=== PATIENT | male | born 1975 | race Caucasian/White ===

== ENCOUNTER 2018-03-26 00:07 | Observation (INO) ==
[2018-03-26] MEDS ORDERED: Ondansetron 4 MG/2 ML VIAL IVP PRN (06:43)
[2018-03-26] MEDS ORDERED: Naloxone 0.4 MG/ML INJ IVP PRN ×2 (06:43)
[2018-03-26] MEDS ORDERED: OXYCODONE Oral CONC 10 MG/0.5 ML ORAL.SYG SL PRN (06:43)
[2018-03-26] MEDS ORDERED: 0.9 % Sodium Chloride 1,000 ML IVC SCH (06:45)
[2018-03-26] MEDS ORDERED: Nitroglycerin 0.4 MG TAB.SUBL SL PRN (06:48)
[2018-03-26] MEDS ORDERED: Dextrose Gel 15 GM/37.5 ML TUBE PO PRN ×2 (06:54)
[2018-03-26] MEDS ORDERED: *HR* Dextrose 50 % in Water (Syg) 50 ML SYRINGE IVP PRN (06:54)
[2018-03-26] MEDS ORDERED: D5% in Water 1,000 ML IVC PRN (06:54)
--- NOTE | 2018-03-26 06:56 | Internal Med History&Physical ---
Date of Encounter: 03/26/18 Time of Encounter: 06:00 Internal Medicine - H&P: HPI Chief complaint: Right flank pain Admitted From: Home Plans for Post Hospital Care: Home History of present illness: Mr. Morales is a 42 year old male transferred from [facility] ER. Patient presented to ER for right flank pain. Past medical history is significant for CAD S/P 5 stents, hypertension, diabetes, AYLIN. Patient said he starts to have right-sided flank pain since yesterday morning around 4 AM. The pain is a sharp, radiated to right lower quadrant abdominal. Patient also has nausea and vomited 7 times. The vomiting were fluid, no blood in it. Patient has no fever. Patient denies chest pain or shortness of breath. Patient denies the abdominal pain related to any eating. Patient had one loose bowel movement yesterday morning. Patient described the urine is dark. He denies dysuria or burning but said the has increased frequency. In the [place] emergency room, lab shows WBC 16.7, hemoglobin 16.6, platelets is 300, troponin and CK MP within normal limits. CMP shows sodium 135, potassium 4.2, chloride 100, bicarbonate 27, BUN 6, creatinine 1.17, glucose 217. AST ALT bilirubin within normal limits. Lipase 91. CT abdomen shows cholelithiasis without signs of cholecystitis. No kidney stone or ureteral stones identified. Patient was given IV fluid, IV pain medication, and 1 dose of Zosyn. Patient was transferred to our hospital for further management. Past Med Surg Social Fam HX - Past Medical History Medical history: CHF, diabetes, hypertension, myocardial infarction Psychiatric history: no psych history - Social History Smoking Status: Current every day smoker Packs per day: 1 Smokeless Tobacco Status: No Alcohol use: none Drug use: none - Family History Mother Living Status: Still Living Hx Family Cardiac Disorders: Yes Hx Family Respiratory Disorders: Yes Father Living Status: Still Living Hx Family Cardiac Disorders: Yes Hx Family Respiratory Disorders: Yes Internal Medicine - H&P: Meds Albuterol Sulfate [Proair Respiclick] 90 mcg IH PRN 03/26/18 [History] Aspirin 81 mg PO DAILY 03/26/18 [History] Atorvastatin [Lipitor] 10 mg PO DAILY 03/26/18 [History] Carvedilol [Coreg] 12.5 mg PO DAILY 03/26/18 [History] Clopidogrel [Plavix] 75 mg PO DAILY 03/26/18 [History] HydrOXYzine Pamoate [Vistaril] 75 mg PO HS 03/26/18 [History] Insulin Glargine,Hum.rec.anlog [Lantus Solostar] 100 units SQ HS 03/26/18 [ History] Insulin LISPRO [Humalog] 100 unit SQ TID 03/26/18 [History] Ipratropium/Albuterol Neb [Duoneb] 3 ml IH PRN 03/26/18 [History] Liraglutide [Victoza 2-Christian] 18 mg SQ DAILY 03/26/18 [History] Melatonin [Melatin] 3 mg PO HS 03/26/18 [History] Nitroglycerin [Nitrostat] 0.4 mg SL Q5MIN PRN 03/26/18 [History] metFORMIN [Glucophage] 1,000 mg PO BIDWM 03/26/18 [History] traZODone [TraZODone] 50 mg PO HS 03/26/18 [History] 3 Allergy/AdvReac Type Severity Reaction Status Date / Time acetaminophen [From Vicodin] Allergy Rash Verified 03/26/18 06:21 hydrocodone [From Vicodin] Allergy Rash Verified 03/26/18 06:21 All Systems PM: A 10-system review of systems was performed and is negative for pertinent findings except as documented above in the HPI. - Constitutional Vitals: Temp Pulse Resp BP Pulse Ox 97.8 F 91 16 131/88 95 03/26/18 05:33 03/26/18 05:33 03/26/18 05:33 03/26/18 05:33 03/26/18 05:33 General appearance: Present: mild distress, A&O X 3, answers questions appropriately - Head Head exam: Present: atraumatic, normocephalic - Eye Eye exam: Present: PERRL, conjuntiva pink, sclera anicteric Pupils: Present: PERRL - Neck Neck exam general surgery: Present: supple, trachea midline. Absent: lymphadenopathy - Respiratory Respiratory exam: Present: CTAB. Absent: accessory muscle use, rales, rhonchi, wheezes - Cardiovascular Cardiovascular exam: Present: RRR, +S1, +S2. Absent: diastolic murmur, gallop, rubs, systolic murmur - GI/Abdominal GI/Abdominal exam: Present: normal bowel sounds, soft, tenderness (On right flank and RLQ, no rebound or guarding. CVAT positive on right side), no peritoneal signs. Absent: distended Additional comments: Morphy's sign negative - Extremities Exam Extremities exam: Present: warm, radial pulses palpable and symmetrical. Absent : calf tenderness, cyanotic, pedal edema - Neurological Exam Neurological exam: Present: CN II-XII intact, oriented X3, no focal deficits. Absent: pronater drift, facial droop, speech deficit - Skin Skin exam: Present: dry, intact - Assessment and plan (1) Abdominal pain Current Visit: Yes Status: Acute Assessment and plan: Patient presented with right flank pain. With elevated white count and nausea vomiting. CT abdomen shows cholelithiasis, otherwise unremarkable. - Patient has flank pain, however, no kidney stone or ureteral stone identified. Suspected pyelonephritis, will check UA. - Billiary colic is another differential diagnosis as patient shows gallstone. Surgery is consulted. - We will continue nothing by mouth, pain management. - Continue Zosyn at this point. Follow-up urine and blood culture Qualifiers: Abdominal location: right upper quadrant Qualified Code(s): R10.11 - Right upper quadrant pain (2) CAD (coronary artery disease) Current Visit: Yes Status: Acute Assessment and plan: Continue home medications aspirin, Plavix, beta guille, and statin. Patient denies chest pain at this point. Qualifiers: Coronary Disease-Associated Artery/Lesion type: [place] artery [place] vs. transplanted heart: [place] heart Associated angina: without angina Qualified Code(s): I25.10 - Atherosclerotic heart disease of [place] coronary artery without angina pectoris (3) Hypertension Current Visit: Yes Status: Acute Assessment and plan: Continue home medications Qualifiers: Hypertension type: essential hypertension Qualified Code(s): I10 - Essential (primary) hypertension (4) Diabetes Current Visit: Yes Status: Acute Assessment and plan: Continue basal and sliding-scale insulin coverage. Closely monitor glucose level Qualifiers: Diabetes mellitus type: type 2 Diabetes mellitus long term care pharmacist insulin use: with long term care pharmacist use Diabetes mellitus complication status: without complication Qualified Code(s): E11.9 - Type 2 diabetes mellitus without complications; Z79.4 - superintendent [employer] (current) use of insulin (5) AYLIN (obstructive sleep apnea) Current Visit: Yes Status: Acute Assessment and plan: Patient said he was prescribed but does not use the CPAP. Place patient on nasal cannula oxygen and continuous oximetry monitoring now. Closely monitor patient. (6) DVT prophylaxis Current Visit: Yes Status: Acute Assessment and plan: Heparin subcutaneously - Time Spent With Patient Total time spent is greater than 50% in coordination of care (as documented) at patient's floor/unit and/or counseling patient: 40 minutes Greater than 35 minutes
[2018-03-26 07:41] LABS: Basophils # 0.1 K/mcL (0.0-0.2); Basophils % 0.5 %; Eosinophils # 0.3 K/mcL (0.0-0.6); Hematocrit 46.2 % (37.5-50.1); Hemoglobin 15.8 g/dL (12.9-16.9); Immature Granulocytes % 0.5 % (0-4); Lymphocytes # 4.1 K/mcL (0.6-4.6); Lymphocytes % 27.6 %; Mean Corpuscular HGB Conc 34.2 g/dL (31.6-35.5); Mean Corpuscular Volume 84.8 fL (83.0-100.0); Mean Platelet Volume 11.2 fL (9.4-12.4); Monocytes # 1.1 K/mcL (0.0-1.3); Monocytes % 7.5 %; Neutrophils # 9.2 K/mcL (1.6-8.9); Platelet Count 288 K/mcL (140-400); Red Blood Count 5.45 M/mcL (4.19-5.50); Red Cell Distribution Width 13.7 % (11.5-14.5); Segmented Neutrophils % 61.9 %
[2018-03-26 07:47] LABS: BUN/Creatinine Ratio 10 (6-26); Blood Urea Nitrogen 7 mg/dL (6-20); Calcium 9.1 mg/dL (8.6-10.3); Carbon Dioxide 25 mEq/L (23-29); Chloride 104 mEq/L (98-107); Glucose 166 mg/dL (70-105); Osmolality,Calculated 286 (280-300); Potassium 3.8 mEq/L (3.5-5.1); Sodium 137 mEq/L (136-145); eGFR For African Americans > 60 (> 60); eGFR For Non-African Americans > 60 (> 60)
[2018-03-26] MEDS: Aspirin Enteric Coated 81 MG Tablet PO SCH (07:51)
[2018-03-26] MEDS: *HR* Heparin 5,000 UNIT/ML VIAL SQ SCH ×2 (07:52→16:41)
[2018-03-26] MEDS: Piperacillin/Tazobactam 3.375 GM in 0.9 % Sodium Chloride Mini Bag 100 ML IVPB SCH ×2 (07:54→16:42)
[2018-03-26] MEDS: Insulin LISPRO 300 UNITS/3 ML VIAL SQ SCH ×3 (08:20→17:35)
--- NOTE | 2018-03-26 10:33 | Internal Med Progress Note ---
Date of Encounter: 03/26/18 Time of Encounter: 10:30 - Assessment and plan (1) Abdominal pain Current Visit: Yes Status: Acute Assessment and plan: right flank pain with evidence of cholelithiasis With elevated white count and nausea vomiting. CT abdomen showed cholelithiasis, otherwise unremarkable. check UA. - Billiary colic is another differential diagnosis , check ultrasound of the right upper quadrant IV fluids May discontinue Zosyn (day #2) if no infection is suspected NPO Add LFTs to today's lab work Consider possible herpetic neuralgia if no positive findings Qualifiers: Abdominal location: right upper quadrant Qualified Code(s): R10.11 - Right upper quadrant pain (2) CAD (coronary artery disease) Current Visit: Yes Status: Acute Assessment and plan: Continue home medications aspirin, Plavix, beta guille, and statin. Patient denies chest pain at this point. Qualifiers: Coronary Disease-Associated Artery/Lesion type: [place] artery [place] vs. transplanted heart: [place] heart Associated angina: without angina Qualified Code(s): I25.10 - Atherosclerotic heart disease of [place] coronary artery without angina pectoris (3) Hypertension Current Visit: Yes Status: Acute Assessment and plan: Stable Qualifiers: Hypertension type: essential hypertension Qualified Code(s): I10 - Essential (primary) hypertension (4) Diabetes Current Visit: Yes Status: Acute Assessment and plan: Insulin sliding-scale insulin coverage. Qualifiers: Diabetes mellitus type: type 2 Diabetes mellitus continuous churn buttermaker insulin use: with half-way use Diabetes mellitus complication status: without complication Qualified Code(s): E11.9 - Type 2 diabetes mellitus without complications; Z79.4 - prison (current) use of insulin (5) AYLIN (obstructive sleep apnea) Current Visit: Yes Status: Acute Assessment and plan: Patient said he was prescribed but does not use the CPAP. Place patient on nasal cannula oxygen and continuous oximetry monitoring now. (6) Morbid obesity Current Visit: Yes Status: Acute - Time Spent With Patient Total time spent is greater than 50% in coordination of care (as documented) at patient's floor/unit and/or counseling patient: - Subjective Interval history: Continues, to complain of right flank pain, positive Foster sign, no nausea or vomiting, no fevers or chills, no dysuria - Constitutional Vitals: Temp Pulse Resp BP Pulse Ox 97.9 F 85 18 109/60 94 03/26/18 08:06 03/26/18 08:06 03/26/18 08:06 03/26/18 08:06 03/26/18 08:06 General appearance: Present: mild distress, A&O X 3, morbidly obese, answers questions appropriately - Head Head exam: Present: atraumatic, normocephalic - Eye Eye exam: Present: PERRL, conjuntiva pink, sclera anicteric Pupils: Present: PERRL - Neck Neck exam general surgery: Present: supple, trachea midline. Absent: lymphadenopathy - Respiratory Respiratory exam: Present: CTAB. Absent: accessory muscle use, rales, rhonchi, wheezes - Cardiovascular Cardiovascular exam: Present: RRR, +S1, +S2. Absent: diastolic murmur, gallop, rubs, systolic murmur - GI/Abdominal GI/Abdominal exam: Present: normal bowel sounds, soft, no peritoneal signs. Absent: distended, tenderness - Extremities Exam Extremities exam: Present: warm, radial pulses palpable and symmetrical. Absent : calf tenderness, cyanotic, pedal edema Additional comments: Flank tenderness, skin tenderness in a dermatomal distribution on the right, no evidence of herpetic lesions - Neurological Exam Neurological exam: Present: CN II-XII intact, oriented X3, no focal deficits. Absent: pronater drift, facial droop, speech deficit - Skin Skin exam: Present: dry, intact Internal Medicine: Result - Labs CBC & Chem 7: 03/26/18 07:06 03/26/18 07:06 Labs: Short CBC 03/26/18 Range/Units 07:06 WBC 14.9 H (4.3-11.1) K/mcL Hgb 15.8 (12.9-16.9) g/dL Hct 46.2 (37.5-50.1) % Plt Count 288 (140-400) K/mcL Neutrophils # 9.2 H (1.6-8.9) K/mcL BMP 03/26/18 07:06 Sodium 137 Potassium 3.8 Chloride 104 Carbon Dioxide 25 BUN 7 Creatinine 0.69 L Glucose 166 H Calcium 9.1 Consult Discharge Plan - Plan Referrals: NONE,PCP [Primary Care Provider] -
[2018-03-26 10:49] LABS: Alanine Aminotransferase 30 Units/L (7-52); Albumin 4.1 g/dL (3.5-5.7); Albumin/Globulin Ratio 1.5 (1.1-2.2); Alkaline Phosphatase 38 Units/L (34-104); Aspartate Amino Transferase 29 Units/L (13-39); Bilirubin,Direct 0.1 mg/dL (0.0-0.2); Bilirubin,Indirect 0.5 mg/dL (0.0-1.2); Bilirubin,Total 0.6 mg/dL (0.3-1.0); Globulin 2.7 g/dL (2.4-3.5); Total Protein 6.8 g/dL (6.4-8.9)
[2018-03-26 11:26] LABS: Bilirubin,Urine Negative (Negative); Blood,Urine Negative (Negative); Clarity,Urine Clear (Clear); Color,Urine Dark Yellow (Yellow); Glucose,Urine (UA) Normal (Normal); Ketones,Urine Negative (Negative); Leukocyte Esterase,Urine Negative (Negative); Nitrite,Urine Negative (Negative); PH,Urine 5.5 pH Units (5.0-8.0); Protein,Urine Trace mg/dL (Neg-Trace); Specific Gravity,Urine > 1.030 (1.010-1.025); Urobilinogen,Urine Normal (Normal)
[2018-03-26 11:31] LABS: Bacteria,Urine None Seen per hpf (None-Few); Hyaline Casts,Urine None Seen per lpf (None-Few); Squamous Epithelial Cell,Urine Moderate per lpf (None-Few); WBC,Urine 0-3 per hpf (0-3)
[2018-03-26] MEDS: 0.9 % Sodium Chloride 1,000 ML IVC SCH ×2 (16:41→16:43)
[2018-03-26] MEDS: OXYCODONE Oral CONC 10 MG/0.5 ML ORAL.SYG SL PRN ×2 (16:55→20:49)
[2018-03-26] MEDS ORDERED: traZODone 50 MG TABLET PO SCH (21:00)
[2018-03-26] MEDS ORDERED: Insulin DETEMIR 100 UNIT/ML X5UNITS SQ SCH (21:00)
[2018-03-26] MEDS ORDERED: hydrOXYzine pamoate 25 MG CAPSULE PO SCH (21:00)
[2018-03-26] MEDS ORDERED: Insulin LISPRO 300 UNITS/3 ML VIAL SQ SCH (21:00)
[2018-03-27] MEDS: *HR* Heparin 5,000 UNIT/ML VIAL SQ SCH ×2 (00:36→09:01)
[2018-03-27] MEDS: Piperacillin/Tazobactam 3.375 GM in 0.9 % Sodium Chloride Mini Bag 100 ML IVPB SCH ×2 (00:37→09:06)
[2018-03-27 01:14] LABS: Basophils # 0.1 K/mcL (0.0-0.2); Basophils % 0.5 %; Eosinophils # 0.4 K/mcL (0.0-0.6); Eosinophils % 3.7 %; Hematocrit 44.4 % (37.5-50.1); Hemoglobin 14.6 g/dL (12.9-16.9); Immature Granulocytes % 0.4 % (0-4); Lymphocytes # 3.5 K/mcL (0.6-4.6); Lymphocytes % 36.2 %; Mean Corpuscular HGB Conc 32.9 g/dL (31.6-35.5); Mean Corpuscular Hemoglobin 27.9 pg (28.0-33.3); Mean Corpuscular Volume 84.9 fL (83.0-100.0); Mean Platelet Volume 11.4 fL (9.4-12.4); Monocytes # 0.7 K/mcL (0.0-1.3); Monocytes % 7.1 %; Platelet Count 259 K/mcL (140-400); Red Blood Count 5.23 M/mcL (4.19-5.50); Red Cell Distribution Width 13.5 % (11.5-14.5); Segmented Neutrophils % 52.1 %
[2018-03-27 01:34] LABS: Alanine Aminotransferase 26 Units/L (7-52); Albumin 3.9 g/dL (3.5-5.7); Albumin/Globulin Ratio 1.6 (1.1-2.2); Alkaline Phosphatase 36 Units/L (34-104); Aspartate Amino Transferase 21 Units/L (13-39); BUN/Creatinine Ratio 11 (6-26); Bilirubin,Total 0.5 mg/dL (0.3-1.0); Blood Urea Nitrogen 8 mg/dL (6-20); Calcium 8.8 mg/dL (8.6-10.3); Carbon Dioxide 28 mEq/L (23-29); Chloride 102 mEq/L (98-107); Globulin 2.5 g/dL (2.4-3.5); Glucose 207 mg/dL (70-105); Osmolality,Calculated 284 (280-300); Potassium 4.1 mEq/L (3.5-5.1); Sodium 135 mEq/L (136-145); Total Protein 6.4 g/dL (6.4-8.9); eGFR For African Americans > 60 (> 60); eGFR For Non-African Americans > 60 (> 60)
[2018-03-27] MEDS: Insulin LISPRO 300 UNITS/3 ML VIAL SQ SCH ×2 (08:54→11:16)
[2018-03-27] MEDS: Aspirin Enteric Coated 81 MG Tablet PO SCH (09:01)
[2018-03-27] MEDS ORDERED: Isovue-370 500 ML INFUS..BTL IV ONE (10:59)
[2018-03-27] MEDS ORDERED: 0.9 % Sodium Chloride 1,000 ML IVC SCH (11:15)
[2018-03-27 11:42] VITALS: BP 114/75
--- NOTE | 2018-03-27 14:20 | General Surgery Consult Note ---
Date of Encounter: 03/27/18 Time of Encounter: 06:15 Assessment and Plan (1) Abdominal pain Current Visit: Yes Status: Acute Consulted due to right upper quadrant ultrasound demonstrating cholelithiasis without any signs of acute cholecystitis or biliary obstruction. Labs do not demonstrating any biliary stasis, UTI, or electrolyte abnormality. Did have leukocytosis initially which has returned to normal. Do not feel this is a surgical case at this time. Patient may be fed an ADA diet and should follow-up with Dr. Carey in the next 2 to 4 weeks as an outpatient in [place]. Discussed with hospitalist service. Surgical service will sign off at this time. Call if need re-evaluation. Qualifiers: Abdominal location: right upper quadrant Qualified Code(s): R10.11 - Right upper quadrant pain (2) Cholelithiasis Current Visit: Yes Status: Acute RUQ ultrasound demonstrates cholelithiasis without choledocholithiasis, acute cholecystitis, or biliary obstruction. Outpatient follow-up as above. Qualifiers: Cholelithiasis location: gallbladder Cholecystitis presence: without cholecystitis Biliary obstruction: without biliary obstruction Qualified Code(s): K80.20 - Calculus of gallbladder without cholecystitis without obstruction History of Present Illness Consult date: 03/27/18 (by Dr. Haleigh López) Reason for consult: abdominal pain History of present illness: This is a 42-year-old male with history of obesity, CAD status post multiple stents on DAPT, insulin-dependent diabetes, hypertension, and morbid obesity. Patient admitted for right sided abdominal/flank pain. Patient initially began on 03/17/2018. Patient states woke up the day with pain predominantly in the right upper quadrant and was associated with nausea vomiting and anorexia. Patient went to the [place] ER couple of days later on 03/19/2018; patient does not specify what was done on that date but says he was released with return precautions. Patient then return to the [place] ER again on 03/26/2018 with same symptoms as well as fevers, chills, sweats, worse vomiting, and worsening right-sided abdominal pain that changed position from anterior more laterally. Pain is described as sharp/cramping/stabbing, comes & goes, is not associated with any specific provoking factors, denies any known alleviating factors, is non-radiating, and is migratory as stated above. Denies similar pain before. Patient denies any rashes throughout. No blood in vomitus. No abnormal stools , black stools, bloody stools, hematuria, dysuria, testicular pain, or discharge. No sick contacts. Negative intra-abdominal surgical history. Today, pain is on lateral chest wall near the mid axillary line and hurts with palpation. Ate last night with no difficulty. Has been able to pass flatus but no bowel movement overnight. Past Med Surg Social Fam HX - Past Medical History Attestation: Yes The following information was validated with the patient. Source: patient Medical history: CHF, diabetes, hypertension, myocardial infarction Psychiatric history: no psych history - Past Surgical History Surgical History: non-contributory - Social History Smoking Status: Current every day smoker Packs per day: 1 Smokeless Tobacco Status: No Alcohol use: none Drug use: none - Family History Mother Living Status: Still Living Hx Family Cardiac Disorders: Yes Hx Family Respiratory Disorders: Yes Father Living Status: Still Living Hx Family Cardiac Disorders: Yes Hx Family Respiratory Disorders: Yes Medications and Allergies Albuterol Sulfate [Proair Respiclick] 90 mcg IH PRN 03/26/18 [History] Aspirin [Lo-Dose Aspirin EC] 81 mg PO DAILY 03/26/18 [History] Atorvastatin [Lipitor] 40 mg PO HS 03/26/18 [History] BuPROPion XL (24 HR) [Wellbutrin XL] 150 mg PO DAILY 03/26/18 [History] Carvedilol [Coreg] 6.25 mg PO BID 03/26/18 [History] Clopidogrel [Plavix] 75 mg PO DAILY 03/26/18 [History] Insulin ASPART [NovoLOG] 5 - 15 unit SQ TIDWM 03/26/18 [History] Insulin Glargine,Hum.rec.anlog [Lantus Solostar] 75 units SQ HS 03/26/18 [ History] Liraglutide [Victoza 2-Christian] 1.8 mg SQ DAILY 03/26/18 [History] Lisinopril [Zestril] 5 mg PO DAILY 03/26/18 [History] Melatonin [Melatin] 3 mg PO HS 03/26/18 [History] Nitroglycerin [Nitrostat] 0.4 mg SL Q5MIN PRN 03/26/18 [History] Oxycodone HCl/Acetaminophen [Percocet 5-325 mg Tablet] 1 tab PO Q12H PRN [History] hydrOXYzine HCl [Hydroxyzine HCl] 25 mg PO BID 03/26/18 [History] hydrOXYzine HCl [Hydroxyzine HCl] 50 mg PO HS 03/26/18 [History] metFORMIN [Glucophage] 1,000 mg PO BIDWM 03/26/18 [History] 3 Allergy/AdvReac Type Severity Reaction Status Date / Time acetaminophen [From Vicodin] Allergy Rash Verified 03/26/18 14:27 hydrocodone [From Vicodin] Allergy Rash Verified 03/26/18 14:27 Review of Systems All systems PM: Positive: fevers, chills, sweats, abdominal pain, nausea, vomiting, lightheadedness. Denies: syncope, visual disturbances, chest pain, palpitations, shortness of breath, hematemesis, coffee ground emesis, diarrhea, melena, bloody stools, hematuria, dysuria, penile discharge, or testicular pain. General Surgery Exam Initial Vital Signs Temp Pulse Resp BP Pulse Ox 97.8 F 91 16 131/88 95 03/26/18 05:33 03/26/18 05:33 03/26/18 05:03/26/18 05:33 03/26/18 05:33 VITAL SIGNS: Reviewed. See [facility] GENERAL: comfortably supine NAD, answers questions appropriately HEENT: [Normocephalic, PER, EOMi, oropharynx pink/moist, no JVD noted.] CV: b/l rad pulses 2+, RRR, no murmurs or gallops, no JVD RESPIRATORY: CTAB without wheezes, rales, or rhonchi ABD: BS+, grossly normal, soft, no abdominal tenderness, no distention/rebound/ guarding/rigidity, TTP over right lateral chest wall at mid-axillary line EXTREMITY: grossly normal motor function, no pedal edema NEUROLOGIC EXAM: AOx3, obeys commands, no speech deficits. PSYCHIATRIC: normal mood and affect SKIN: no rashes seen over area of tenderness of chest/abdomen Exam Initial Vital Signs Temp Pulse Resp BP Pulse Ox 97.8 F 91 16 131/88 95 03/26/18 05:33 03/26/18 05:33 03/26/18 05:33 03/26/18 05:33 03/26/18 05:33 Results - Labs 03/27/18 00:47 03/27/18 00:47 Abnormal lab results MCH 27.9 pg (28.0-33.3) L 03/27/18 00:47 Sodium 135 mEq/L (136-145) L 03/27/18 00:47 Glucose 207 mg/dL (70-105) H 03/27/18 00:47 POC Glucose 214 mg/dL (70-99) H 03/26/18 20:02 Ur Specific [place] > 1.030 (1.010-1.025) H 03/26/18 10:55 Urine Microscopic RBC 5-15 per hpf (0-3) H 03/26/18 10:55 Ur Squamous Epith Cells Moderate per lpf (None-Few) H 03/26/18 10:55 Diabetes panel 03/27/18 Range/Units 00:47 Sodium 135 L (136-145) mEq/L Potassium 4.1 (3.5-5.1) mEq/L Chloride 102 (98-107) mEq/L Carbon Dioxide 28 (23-29) mEq/L BUN 8 (6-20) mg/dL Creatinine 0.75 (0.70-1.30) mg/dL Glucose 207 H (70-105) mg/dL Calcium 8.8 (8.6-10.3) mg/dL AST 21 (13-39) Units/L ALT 26 (7-52) Units/L Alkaline Phosphatase 36 (34-104) Units/L Albumin 3.9 (3.5-5.7) g/dL Calcium panel 03/27/18 Range/Units 00:47 Calcium 8.8 (8.6-10.3) mg/dL Albumin 3.9 (3.5-5.7) g/dL Pituitary panel 03/27/18 Range/Units 00:47 Sodium 135 L (136-145) mEq/L Potassium 4.1 (3.5-5.1) mEq/L Chloride 102 (98-107) mEq/L Carbon Dioxide 28 (23-29) mEq/L BUN 8 (6-20) mg/dL Creatinine 0.75 (0.70-1.30) mg/dL Glucose 207 H (70-105) mg/dL Calcium 8.8 (8.6-10.3) mg/dL Adrenal panel 03/27/18 Range/Units 00:47 Sodium 135 L (136-145) mEq/L Potassium 4.1 (3.5-5.1) mEq/L Chloride 102 (98-107) mEq/L Carbon Dioxide 28 (23-29) mEq/L BUN 8 (6-20) mg/dL Creatinine 0.75 (0.70-1.30) mg/dL Glucose 207 H (70-105) mg/dL Calcium 8.8 (8.6-10.3) mg/dL Total Bilirubin 0.5 (0.3-1.0) mg/dL AST 21 (13-39) Units/L ALT 26 (7-52) Units/L Alkaline Phosphatase 36 (34-104) Units/L Albumin 3.9 (3.5-5.7) g/dL All other labs normal. Consult Discharge Plan - Plan Referrals: NONE,PCP [Primary Care Provider] -
--- NOTE | 2018-03-27 14:51 | Discharge Summary ---
- NOTES TO OUTPATIENT PROVIDER Notes to Outpatient Provider: Follow-up with primary care physician within the next 7 days. Follow-up with Dr. Carey in [place] within the next 2-4 weeks. Avoid fatty meals Orders not resulted at time of discharge: Pending orders 03/26/18 07:05 Culture,Blood [BC] Stat Date of Encounter: 03/27/18 Time of Encounter: 14:50 - Discharge Diagnosis (1) Abdominal pain Priority: Primary Status: Acute Assessment and Plan: right flank pain with evidence of cholelithiasis, possibly biliary colic, resolved Qualifiers: Abdominal location: right upper quadrant Qualified Code(s): R10.11 - Right upper quadrant pain (2) CAD (coronary artery disease) Priority: Secondary Status: Acute Qualifiers: Coronary Disease-Associated Artery/Lesion type: habematolel artery [place] vs. transplanted heart: habematolel heart Associated angina: without angina Qualified Code(s): I25.10 - Atherosclerotic heart disease of habematolel coronary artery without angina pectoris (3) Hypertension Priority: Secondary Status: Acute Qualifiers: Hypertension type: essential hypertension Qualified Code(s): I10 - Essential (primary) hypertension (4) Diabetes Priority: Secondary Status: Acute Qualifiers: Diabetes mellitus type: type 2 Diabetes mellitus local intermodal truck driver insulin use: with local intermodal truck driver use Diabetes mellitus complication status: without complication Qualified Code(s): E11.9 - Type 2 diabetes mellitus without complications; Z79.4 - terminal worker (current) use of insulin (5) AYLIN (obstructive sleep apnea) Priority: Secondary Status: Acute (6) Morbid obesity Priority: Secondary Status: Acute Hospital course: Mr. Morales is a 42 year old male with history of obesity, CAD status post multiple stents on DAPT, insulin-dependent diabetes, hypertension, and morbid obesity, admitted for right sided abdominal/flank pain. Pain initially began on 03/17/2018, states he woke up with pain predominantly in the right upper quadrant and was associated with nausea vomiting and anorexia. Patient went to the [place] [facility] a couple of days later on 03/19/2018 ; patient did not specify what was done on that date but said he was released with return precautions. Returned again to the [place] ER again on 03/26/2018 with same symptoms as well as fevers, chills, sweats, worse vomiting, and worsening right-sided abdominal pain that changed position from anterior more laterally. Pain was described as sharp/cramping/stabbing, comes & goes, is not associated with any specific provoking factors, denied any known alleviating factors, is non-radiating, and is migratory as stated above. Denies similar pain before. Patient denied any rashes throughout. No blood in vomitus. No abnormal stools , black stools, bloody stools, hematuria, dysuria, testicular pain, or discharge. No sick contacts. Negative intra-abdominal surgical history. With elevated white count of 14.9 ( resolved) CT of the abdomen showed cholelithiasis, otherwise unremarkable. Ultrasound of the right upper quadrant demonstrated cholelithiasis received IV fluids Zosyn was discontinued as no infection was suspected SUrgery was consulted and recommended follow up as outpatient in 2 weeks ( Dr Carey in [place]) Consider possible herpetic neuralgia if vesicles develop. Stable to be discharged. - Time Spent with Patient Total time spent providing and/or coordinating discharge services: Greater than 30 minutes (40 min) - Discharge Medications Prescriptions: Oxycodone HCl/Acetaminophen [Percocet 5-325 mg Tablet] 1 tab PO Q6H PRN 5 Days # 20 tablet PRN Reason: Moderate Pain Home Medications: Albuterol Sulfate [Proair Respiclick] 90 mcg IH PRN 03/26/18 [History] Aspirin [Lo-Dose Aspirin EC] 81 mg PO DAILY 03/26/18 [History] Atorvastatin [Lipitor] 40 mg PO HS 03/26/18 [History] BuPROPion XL (24 HR) [Wellbutrin Xl] 150 mg PO DAILY 03/26/18 [History] Carvedilol [Coreg] 6.25 mg PO BID 03/26/18 [History] Clopidogrel [Plavix] 75 mg PO DAILY 03/26/18 [History] Insulin ASPART [NovoLOG] 5 - 15 unit SQ TIDWM 03/26/18 [History] Insulin Glargine,Hum.rec.anlog [Lantus Solostar] 75 units SQ HS 03/26/18 [ History] Liraglutide [Victoza 2-Christian] 1.8 mg SQ DAILY 03/26/18 [History] Lisinopril [Zestril] 5 mg PO DAILY 03/26/18 [History] Melatonin [Melatin] 3 mg PO HS 03/26/18 [History] Nitroglycerin [Nitrostat] 0.4 mg SL Q5MIN PRN 03/26/18 [History] hydrOXYzine HCl [Hydroxyzine HCl] 25 mg PO BID 03/26/18 [History] hydrOXYzine HCl [Hydroxyzine HCl] 50 mg PO HS 03/26/18 [History] metFORMIN [Glucophage] 1,000 mg PO BIDWM 03/26/18 [History] Oxycodone HCl/Acetaminophen [Percocet 5-325 mg Tablet] 1 tab PO Q6H PRN 5 Days # 20 tablet 03/27/18 [Rx] Allergies/Adverse Reactions: 3 Allergy/AdvReac Type Severity Reaction Status Date / Time acetaminophen [From Vicodin] Allergy Rash Verified 03/26/18 14:27 hydrocodone [From Vicodin] Allergy Rash Verified 03/26/18 14:27 Date of admission: 03/26/18 06:43 Primary care physician: PCP NONE Consults: 03/26/18 06:50 Consult to Surgery [CONS] Routine Consulting Provider: [facility] Reason for Consult: Cholelithiasis, Dr Carey was called. Call Completed: Yes - Constitutional Vitals: Temp Pulse Resp BP Pulse Ox 97.6 F 81 15 114/75 96 03/27/18 11:42 03/27/18 11:42 03/27/18 11:42 03/27/18 11:42 03/27/18 11:42 General appearance: Present: mild distress, A&O X 3, morbidly obese, answers questions appropriately - Head Head exam: Present: atraumatic, normocephalic - Eye Eye exam: Present: PERRL, conjuntiva pink, sclera anicteric Pupils: Present: PERRL - Neck Neck exam general surgery: Present: supple, trachea midline. Absent: lymphadenopathy - Respiratory Respiratory exam: Present: CTAB. Absent: accessory muscle use, rales, rhonchi, wheezes - Cardiovascular Cardiovascular exam: Present: RRR, +S1, +S2. Absent: diastolic murmur, gallop, rubs, systolic murmur - GI/Abdominal GI/Abdominal exam: Present: distended, normal bowel sounds, soft, no peritoneal signs. Absent: tenderness - Extremities Exam Extremities exam: Present: warm, radial pulses palpable and symmetrical. Absent : calf tenderness, cyanotic, pedal edema - Neurological Exam Neurological exam: Present: CN II-XII intact, oriented X3, no focal deficits. Absent: pronater drift, facial droop, speech deficit - Skin Skin exam: Present: dry, intact - Patient Status Disposition: Home, Self-Care Condition: Good Overall status at discharge: patient is back to baseline - Discharge Instructions Follow Up With: NONE,PCP [Primary Care Provider] - Additional Instructions: Follow-up with primary care physician within the next 7 days. Follow-up with Dr. Carey in [place] within the next 2-4 weeks. Avoid fatty meals - Diet and Activity Activity: increase activity as tolerated Diet: diabetic diet
== END 2018-03-27 17:39 | disposition home or self-care (01) ==
LOC: 2NNU → 3NENU 21:32
PROVIDERS: ADMIT Pediatrics; ATTEND Pediatrics